=== PATIENT | male | born 1950 | race Caucasian/White ===

== ENCOUNTER 2018-01-12 08:59 | Emergency (ER) | payer MEDICARE, OTHER ==
[~2018-01-12] VITALS: Ht 167.6 cm; Wt 73.9 kg
[2018-01-12] MEDS ORDERED: DILANTIN100 MG PO (09:25)
[2018-01-12] MEDS ORDERED: MELOXICAM7.5 MG PO (09:25)
[2018-01-12] MEDS ORDERED: KEPPRA750 MG PO (09:25)
[2018-01-12] MEDS ORDERED: ONDANSETRON HCL 4 MG ORAL DISINTEGRATING TAB PO ONE (09:45)
[2018-01-12] MEDS ORDERED: ZOFRAN ODT4 MG SL (10:23)
[2018-01-12] MEDS ORDERED: SODIUM CHLORIDE 0.9% 1000ML 1,000 ML ONE (10:45)
--- NOTE | 2018-01-12 11:24 | Diagnostic Imaging Report ---
Examination: CT head without contrast Clinical Indication: Severe dizziness and right parietal pain. No trauma.. Technique: Transaxial noncontrast images from the skull base through the vertex were obtained. Sagittal and coronal reformatted images were done. Dose modulation, iterative reconstruction, and/or weight based adjustment of the mA/kV was utilized to reduce the radiation dose to as low as reasonably achievable. Comparison: None. Findings: Scalp: No abnormalities. Bones: Prior right temporoparietal craniotomy. No fractures. No blastic or lytic lesions. Brain sulci: Appropriate for patient's age. Ventricles: No hydrocephalus. Extra-axial space: No abnormalities. Parenchyma: Cortical-based encephalomalacia of the right frontal and temporoparietal lobes with ex vacuo dilatation of the body, atrium and temporal horn of the right lateral ventricle. No masses, hemorrhage, or acute cortical based vascular insults. Suprasellar region: No abnormalities. Craniocervical junction: The foramen magnum is patent. No Chiari one malformation. Incidental findings: None Impression: 1. No acute intracranial finding. 2. 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 3. Prior right temporoparietal craniotomy. Signed by: Dr. Tayla Cancino M.D. on 01/12/2018 11:20 AM
== END 2018-01-12 14:03 | disposition home or self-care (01) ==
LOC: FSED 08:59
DX: R53.1 Weakness (principal); R42 Dizziness and giddiness; G44.89 Other headache syndrome; B34.9 Viral infection, unspecified
CPT/HCPCS: 70450; 80053; 85025; 93005; 99284; J7030

== ENCOUNTER 2018-08-02 09:04 | Emergency (ER) | payer MEDICARE, OTHER ==
[~2018-08-02] VITALS: Ht 167.6 cm; Wt 73.9 kg
[~2018-08-02 09:04] MED LIST: DILANTIN100 MG PO; KEPPRA750 MG PO; MELOXICAM7.5 MG PO; ZOFRAN ODT4 MG SL
--- OUTSIDE RECORDS SUMMARY | 2018-08-02 09:07 | XMS REPORT | Continuity of Care Document ---
Author Author [facility] Interface Address Unknown Phone Unavailable Problems Problem Status Onset Date Classification Date Reported Comments Source Pain in left knee 12/19/2017 07/01/2018 [facility] [place] M25.562 - PAIN IN LEFT KNEE Active 12/12/2017 [facility] Medications Medication Details Route Status Patient Instructions Ordering Provider Order Date Source Ondansetron (Zofran Odt) 4 Mg Tab.rapdis Every 6 Hours as needed for Nausea Active Guallpa 01/12/2018 [facility] Levetiracetam (Keppra) 750 Mg Tablet Twice A Day Active [facility] Meloxicam 7.5 Mg Tablet Daily Active [facility] Phenytoin Sodium Extended (Dilantin) 100 Mg Capsule Twice A Day Active [facility] Allergies, Adverse Reactions, Alerts Substance Category Reaction Severity Reaction type Status Date Reported Comments Source Immunizations Immunization Date Given Site Status Last Updated Comments Source Results Order Name Results Value Reference Range Date Interpretation Comments Source Knee 3 views DX Knee 3 views DX EXAM: XR LEFT KNEE 3 VIEWS DATE: 12/12/2017 9:43 AM CDT INDICATION: M25.562 Pain in left knee COMPARISON: None. TECHNIQUE: Weightbearing lateral radiograph of the left knee, weightbearing AP radiograph of bilateral knees, and sunrise view of the left knee. FINDINGS: The joint spaces are preserved. Small osteophytes are seen around the patella. No knee joint effusion is present. No soft tissue abnormality is identified. No fractures or dislocations are seen. IMPRESSION: Minimal osteoarthrosis of the left knee. 12/12/2017 - - This report was dictated by a Gauger Delivery/Fellow. I have personally reviewed the images as well as the Resident's interpretation and agree with the findings. Read by: Teresita Santoro MD Resident: Teresita Santoro MD Dictated Date/time: 12/12/17 11:06 Electronically Signed by: Mando Ulrich MD 12/13/17 07:36 FINAL REPORT [facility] Vital Signs Vital Sign Value Date Comments Source Encounters Location Location Details Encounter Type Encounter Number Reason For Visit Attending Provider ADM Date DC Date Status Source [facility] Outpatient Imaging - [place] [facility] [id number] Mat Huston 12/12/2017 12/13/2017 [facility] Room [id number] SUAD GUALLPA MD 01/12/2018 01/12/2018 [facility] Procedures Procedure Code Date Perfomer Comments Source
--- OUTSIDE RECORDS SUMMARY | 2018-08-02 09:07 | XMS REPORT ---
Author Author [facility] Address Unknown Phone Unavailable Care Team Providers Care Manager Stylist Name Role Phone Va GUALLPA Unavailable Unavailable Problems This patient has no known problems. Allergies, Adverse Reactions, Alerts This patient has no known allergies or adverse reactions. Medications This patient has no known medications. Results Test Description Test Time Test Comments Text Results Atomic Results Result Comments CT BRAIN WO-HOPD 2018-01-12 11:19:00 [place] [address] Patient Name: ENEIDA ALCOCER MR #: [id number] : 1950 Age/Sex: 67/M Req #: [id number] [facility] Physician: Ordered by: SUAD GUALLPA MD Report #: [id number] Location: [facility] Room/Bed: Procedure: HOPD/CT BRAIN WO-HOPD Exam Date: 01/12/18 Exam Time: 1105 REPORT STATUS: Signed Examination: CT head without contrast Clinical Indication: Severe dizziness and right parietal pain. No trauma.. Technique: Transaxial noncontrast images from the skull base through the vertex were obtained. Sagittal and coronal reformatted images were done. Dose modulation, iterative reconstruction, and/or weight based adjustment of the mA/kV was utilized to reduce the radiation dose to as low as reasonably achievable. Comparison: None. Findings: Scalp: No abnormalities. Bones: Prior right temporoparietal craniotomy. No fractures. No blastic or lytic lesions. Brain sulci: Appropriate for patient's age. Ventricles: No hydrocephalus. Extra-axial space: No abnormalities. Parenchyma: Cortical-based encephalomalacia of the right frontal and temporoparietal lobes with ex vacuo dilatation of the body, atrium and temporal horn of the right lateral ventricle. No masses, hemorrhage, or acute cortical based vascular insults. Suprasellar region: No abnormalities. Craniocervical junction: The foramen magnum is patent. No Chiari one malformation. Incidental findings: None Impression: 1. No acute intracranial finding. 2. 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 3. Prior right temporoparietal craniotomy. Signed by: Dr. Tayla Cancino M.D. on 01/12/2018 11:20 AM Dictated By: TAYLA AGARWAL MD 1120 Transcribed By: CLARKE on 01/12/18 1120 COPY TO: SUAD GUALLPA MD
--- OUTSIDE RECORDS SUMMARY | 2018-08-02 09:07 | XMS REPORT | Summary of Care ---
Author Author [facility] Outpatient Imaging [facility]patient [facility] Address Unknown Phone Unavailable Encounter HQ Encntr_alias(FIN) [id number] Date(s): 12/12/17 - 12/12/17 [facility] Outpatient Imaging [facility] [address] [facility], [address] [place], [place] [address] [phone] Encounter Diagnosis Pain in left knee (Final) - 12/18/17 Discharge Disposition: Home or Self Care Attending Physician: Mat Huston MD Referring Physician: Mat Huston MD Vital Signs No data available for this section Problem List No data available for this section Allergies, Adverse Reactions, Alerts No data available for this section Medications No data available for this section Results No data available for this section Immunizations No data available for this section Procedures No data available for this section Social History No data available for this section Assessment and Plan No data available for this section
[2018-08-02] MEDS ORDERED: HYDROCODONE/APAP 5MG-325MG TAB PO ONE (09:45)
--- NOTE | 2018-08-02 11:35 | Diagnostic Imaging Report ---
Sternum CPT 61043 Indication: Trauma with pain and swelling Comparison: None Findings: The lateral view of the sternum demonstrates no evidence of fracture or dislocation. The LEMA view demonstrates no evidence of fracture. Visualized ribs appear intact. IMPRESSION: No evidence of fracture or dislocation. Signed by: Dr. David Rivero MD on 08/02/2018 11:32 AM
== END 2018-08-02 11:40 | disposition home or self-care (01) ==
LOC: ER 09:04
DX: S20.219A Contusion of unspecified front wall of thorax, initial encounter (principal); V43.52XA Car driver injured in collision with other type car in traffic accident, initial encounter; Y92.488 Other paved roadways as the place of occurrence of the external cause; I25.10 Atherosclerotic heart disease of native coronary artery without angina pectoris; G40.909 Epilepsy, unspecified, not intractable, without status epilepticus; Z85.46 Personal history of malignant neoplasm of prostate
CPT/HCPCS: 71120; 93005; 99283

== ENCOUNTER 2020-11-20 09:14 | Emergency (ER) | payer MEDICARE, OTHER ==
[~2020-11-20] VITALS: Ht 167.6 cm; Wt 60.4 kg
[2020-11-20] MEDS ORDERED: FLOMAX0.4 MG PO (09:27)
[2020-11-20] MEDS ORDERED: CEPHALEXIN500 MG PO (09:37)
== END 2020-11-20 09:43 | disposition home or self-care (01) ==
LOC: FSED 09:26
DX: H66.93 Otitis media, unspecified, bilateral (principal); I25.10 Atherosclerotic heart disease of native coronary artery without angina pectoris; G40.909 Epilepsy, unspecified, not intractable, without status epilepticus; Z85.46 Personal history of malignant neoplasm of prostate
CPT/HCPCS: 99282

== ENCOUNTER 2020-12-16 15:51 | Emergency (ER) | payer MEDICARE, OTHER ==
[~2020-12-16] VITALS: Ht 167.6 cm; Wt 60.9 kg
[~2020-12-16 15:51] MED LIST changes: +CEPHALEXIN500 MG PO; +FLOMAX0.4 MG PO
[2020-12-16] MEDS ORDERED: CLINDAMYCIN 600MG / 50ML 50 ML IV ONE ×2 (17:44→17:45)
[2020-12-16] MEDS ORDERED: Vancomycin IV 1 GM in SODIUM CHLORIDE 0.9% 250ML 250 ML IV ONE (18:00)
[2020-12-16] MEDS ORDERED: SODIUM CHLORIDE 0.9% 250ML 250 ML ONE (18:13)
[2020-12-16] MEDS ORDERED: Vancomycin IV 1 GM VIAL ONE (18:14)
[2020-12-16] MEDS ORDERED: CLEOCIN HCL300 MG PO (20:24)
[2020-12-16] MEDS ORDERED: CEPHALEXIN500 MG PO (20:29)
[2020-12-16 20:42] VITALS: BP 150/84
== END 2020-12-16 20:42 | disposition home or self-care (01) ==
LOC: FSED 16:40
DX: L03.114 Cellulitis of left upper limb (principal); M79.642 Pain in left hand; E78.5 Hyperlipidemia, unspecified; G40.909 Epilepsy, unspecified, not intractable, without status epilepticus; Z85.46 Personal history of malignant neoplasm of prostate
CPT/HCPCS: 80053; 85025; 99283; J3370; J7050

== ENCOUNTER 2022-09-29 17:33 | Emergency (ER) | payer MEDICARE, OTHER ==
[~2022-09-29] VITALS: Ht 167.6 cm; Wt 54.4 kg
[~2022-09-29 17:33] MED LIST changes: +CLEOCIN HCL300 MG PO
[2022-09-29] MEDS ORDERED: FAMOTIDINE 20 MG/2 ML VIAL IV STA (17:53)
[2022-09-29] MEDS ORDERED: ONDANSETRON HCL INJ 2MG/ML 2ML 2 MG/ML VIAL IV STA (17:53)
[2022-09-29] MEDS ORDERED: DONNATAL/LIDOCAINE/MAALOX 30 ML SUSP PO ONE (18:00)
[2022-09-29] MEDS ORDERED: MAGNESIUM/ALUMINUM/SIMETHICONE 30 ML UDC ONE (18:12)
[2022-09-29] MEDS ORDERED: LIDOCAINE VISC 2% SOLN 15 ML UDC ONE (18:12)
[2022-09-29] MEDS ORDERED: BELLADONNA ALK/PHENOBARBITAL 5 ML UDC ONE (18:12)
[2022-09-29] MEDS ORDERED: FAMOTIDINE 20 MG/2 ML VIAL IV ONE (18:12)
[2022-09-29] MEDS ORDERED: ONDANSETRON HCL INJ 2MG/ML 2ML 2 MG/ML VIAL ONE (18:12)
[2022-09-29] MEDS ORDERED: IOPAMIDOL 370 MG/ML 100 ML INFUS..BTL INJ ONE (18:22)
[2022-09-29] MEDS ORDERED: DICYCLOMINE HCL10 MG PO (20:06)
[2022-09-29 20:15] VITALS: BP 153/73; PULSE 78; RESP 18; TEMP 97.8; O2SAT 98
== END 2022-09-29 20:15 | disposition home or self-care (01) ==
LOC: FSED 17:46
DX: R10.33 Periumbilical pain (principal); K80.20 Calculus of gallbladder without cholecystitis without obstruction; R11.0 Nausea; I25.10 Atherosclerotic heart disease of native coronary artery without angina pectoris; E78.5 Hyperlipidemia, unspecified; G40.909 Epilepsy, unspecified, not intractable, without status epilepticus; Z85.46 Personal history of malignant neoplasm of prostate; Z87.820 Personal history of traumatic brain injury
CPT/HCPCS: 74177; 76705; 80048; 80076; 81003; 82553; 84484; 85025; 93005; 96374; 96375; 96376; 99284; J2405; Q9967

== ENCOUNTER 2022-10-04 16:34 | Inpatient (IN) | payer MEDICARE, OTHER ==
[~2022-10-04] VITALS: Ht 167.6 cm; Wt 54.4 kg
[~2022-10-04 16:34] MED LIST changes: +DICYCLOMINE HCL10 MG PO
[2022-10-04] MEDS ORDERED: SODIUM CHLORIDE 0.9% 1000ML 1,000 ML IV STA (16:51)
[2022-10-04] MEDS ORDERED: Morphine 2mg Syringe 2 MG/ML SYR IV STA (16:51)
[2022-10-04] MEDS ORDERED: ONDANSETRON HCL INJ 2MG/ML 2ML 2 MG/ML VIAL IV STA (16:51)
[2022-10-04 17:12] LABS: BASOPHILS % 0.5 % (0.0-1.0); LYMPHOCYTES # (AUTO) 1.3 (1.0-3.2); LYMPHOCYTES % 63.2 % (18.0-39.1); MEAN CORPUSCULAR HEMOGLOBIN 26.5 pg (28-32); MEAN CORPUSCULAR HGB CONC 32.4 g/dL (31-35); MEAN CORPUSCULAR VOLUME 81.9 fL (81-99); MONOCYTES # (AUTO) 0.5 (0.2-0.8); MONOCYTES % 22.1 % (4.4-11.3); NEUTROPHILS # (AUTO) 0.3 (2.1-6.9); NEUTROPHILS % 13.7 % (38.7-80.0); PLATELET COUNT 238 x10e3/uL (140-360); RED BLOOD COUNT 4.52 x10e6/uL (4.3-5.7); RED CELL DISTRIBUTION WIDTH 19.4 % (11.7-14.4)
[2022-10-04 17:34] LABS: ALANINE AMINOTRANSFERASE 24 IU/L (0-55); ALBUMIN/GLOBULIN RATIO 0.6 (0.8-2.0); ALKALINE PHOSPHATASE 241 IU/L (40-150); ANION GAP 18.2 mmol/L (8-16); BLOOD UREA NITROGEN 13 mg/dL (7-26); BUN/CREATININE RATIO 17 (6-25); CALCIUM 9.2 mg/dL (8.4-10.2); CARBON DIOXIDE 22 mmol/L (22-29); CHLORIDE 94 mmol/L (98-107); CREATINE KINASE 20 IU/L (30-200); CREATININE, SERUM 0.75 mg/dL (0.72-1.25); GLUCOSE 153 mg/dL (74-118); LIPASE 20 U/L (8-78); POTASSIUM 3.2 mmol/L (3.5-5.1); SODIUM 131 mmol/L (136-145)
[2022-10-04] MEDS ORDERED: SODIUM CHLORIDE 0.9% 1000ML 1,000 ML IV SCH (18:15)
[2022-10-04] MEDS ORDERED: ONDANSETRON HCL INJ 2MG/ML 2ML 2 MG/ML VIAL IV PRN (18:15)
[2022-10-04 19:45] LABS: LYMPHOCYTES % (MANUAL) 65 % (19-48); MONOCYTES % (MANUAL) 15 % (3.4-9.0); NEUTROPHILS % (MANUAL) 9 % (40-74); PLATELET ESTIMATE ADEQUATE; PLATELET MORPHOLOGY COMMENT NORMAL; RBC MORPHOLOGY COMMENT NORMAL
[2022-10-04 21:30] VITALS: BP 111/62; PULSE 72; RESP 17; TEMP 97.7; O2SAT 99
[2022-10-04] MEDS: SODIUM CHLORIDE 0.9% 1000ML 1,000 ML IV SCH (21:38)
[2022-10-04 21:44] VITALS: PULSE 75; RESP 16; O2SAT 99
[2022-10-04 21:53] VITALS: BP 113/66; PULSE 72; RESP 17; TEMP 97.7; O2SAT 100
[2022-10-04] MEDS: POTASSIUM CHLORIDE 10MEQ/100ML 100 ML IV SCH ×2 (22:16→22:17)
[2022-10-04] MEDS ORDERED: HYDRALAZINE HCL 20 MG/ML VIAL IV PRN (22:45)
[2022-10-05] VITALS (8 sets, daily range): BP systolic 116–150; BP diastolic 60–72; PULSE 67–91; RESP 16–18; TEMP 97.6–98.8; O2SAT 97–100
[2022-10-05] MEDS: Morphine 4mg INJECTION 4 MG/ML INJ IV PRN ×2 (00:20→17:06)
[2022-10-05 00:53] LABS: CREATINE KINASE 12 IU/L (30-200)
[2022-10-05] MEDS: SODIUM CHLORIDE 0.9% 1000ML 1,000 ML IV SCH ×3 (05:06→20:26)
[2022-10-05 06:16] LABS: ALBUMIN 2.2 g/dL (3.5-5.0); ALBUMIN/GLOBULIN RATIO 0.6 (0.8-2.0); ANION GAP 13.4 mmol/L (8-16); BILIRUBIN,DIRECT 0.5 mg/dL (0.0-0.5); CREATININE, SERUM 0.58 mg/dL (0.72-1.25); MAGNESIUM 1.8 MG/DL (1.3-2.1); POTASSIUM 4.4 mmol/L (3.5-5.1)
[2022-10-05 06:34] LABS: HIV 1&2 AB SCREEN NON-REACTIVE (NONREACTIVE)
[2022-10-05 06:40] LABS: FERRITIN 714.82 ng/mL (21.81-274.66)
[2022-10-05 06:52] LABS: HEMATOCRIT 25.2 % (38.2-49.6); LYMPHOCYTES # (AUTO) 0.5 (1.0-3.2); LYMPHOCYTES % 56.8 % (18.0-39.1); MEAN CORPUSCULAR HGB CONC 32.1 g/dL (31-35); MONOCYTES # (AUTO) 0.3 (0.2-0.8); MONOCYTES % 31.6 % (4.4-11.3); NEUTROPHILS # (AUTO) 0.1 (2.1-6.9); NEUTROPHILS % 11.6 % (38.7-80.0); PLATELET COUNT 155 x10e3/uL (140-360); RED BLOOD COUNT 3.11 x10e6/uL (4.3-5.7); RED CELL DISTRIBUTION WIDTH 18.9 % (11.7-14.4)
[2022-10-05 06:59] LABS: HEMOGLOBIN 8.1 g/dL (14.0-18.0)
[2022-10-05 07:51] LABS: LYMPHOCYTES % (MANUAL) 80 % (19-48); MONOCYTES % (MANUAL) 12 % (3.4-9.0); NEUTROPHILS % (MANUAL) 8 % (40-74)
[2022-10-05 07:52] LABS: ANISOCYTOSIS SLIGHT; PLATELET ESTIMATE ADEQUATE; PLATELET MORPHOLOGY COMMENT NORMAL; TOXIC GRANULATION MODERATE
[2022-10-05 07:53] LABS: RBC MORPHOLOGY COMMENT NORMAL
[2022-10-05 07:54] LABS: HYPOCHROMASIA SLIGHT
[2022-10-05 07:55] LABS: CREATINE KINASE 12 IU/L (30-200)
[2022-10-05] MEDS: DOCUSATE SODIUM 100 MG CAP PO SCH (08:19)
[2022-10-05] MEDS: SENNOSIDES 8.6 MG TAB PO SCH (08:19)
[2022-10-05 10:11] LABS: BASOPHILS % 1.2 % (0.0-1.0); HEMATOCRIT 26.6 % (38.2-49.6); HEMOGLOBIN 8.5 g/dL (14.0-18.0); LYMPHOCYTES # (AUTO) 0.5 (1.0-3.2); LYMPHOCYTES % 59.3 % (18.0-39.1); MEAN CORPUSCULAR HEMOGLOBIN 26.2 pg (28-32); MEAN CORPUSCULAR VOLUME 82.1 fL (81-99); MONOCYTES # (AUTO) 0.2 (0.2-0.8); MONOCYTES % 22.1 % (4.4-11.3); NEUTROPHILS # (AUTO) 0.2 (2.1-6.9); NEUTROPHILS % 17.4 % (38.7-80.0); PLATELET COUNT 126 x10e3/uL (140-360); RED BLOOD COUNT 3.24 x10e6/uL (4.3-5.7); RED CELL DISTRIBUTION WIDTH 18.7 % (11.7-14.4)
[2022-10-05] MEDS ORDERED: ACETAMINOPHEN 325 MG TAB PO PRN (13:00)
[2022-10-05] MEDS ORDERED: Morphine 2mg Syringe 2 MG/ML SYR IV PRN (13:00)
[2022-10-05 15:41] LABS: LYMPHOCYTES % (MANUAL) 56 % (19-48); MONOCYTES % (MANUAL) 20 % (3.4-9.0); NEUTROPHILS % (MANUAL) 20 % (40-74); PLATELET MORPHOLOGY COMMENT NORMAL
[2022-10-05 15:42] LABS: PLATELET ESTIMATE SLIGHTLY DECREASED; TOXIC GRANULATION SLIGHT
[2022-10-05 15:43] LABS: ANISOCYTOSIS SLIGHT; RBC MORPHOLOGY COMMENT NORMAL
[2022-10-06 00:44] VITALS: BP 111/61; PULSE 65; RESP 17; TEMP 98.8; O2SAT 99
[2022-10-06] MEDS: SODIUM CHLORIDE 0.9% 1000ML 1,000 ML IV SCH (04:16)
[2022-10-06 04:39] VITALS: BP 115/72; PULSE 74; RESP 17; TEMP 98.7; O2SAT 99
[2022-10-06 06:08] LABS: HEMATOCRIT 25.6 % (38.2-49.6); HEMOGLOBIN 8.3 g/dL (14.0-18.0); LYMPHOCYTES # (AUTO) 0.7 (1.0-3.2); LYMPHOCYTES % 67.3 % (18.0-39.1); MEAN CORPUSCULAR HEMOGLOBIN 26.6 pg (28-32); MEAN CORPUSCULAR HGB CONC 32.4 g/dL (31-35); MEAN CORPUSCULAR VOLUME 82.1 fL (81-99); MONOCYTES # (AUTO) 0.2 (0.2-0.8); MONOCYTES % 19.8 % (4.4-11.3); NEUTROPHILS # (AUTO) 0.1 (2.1-6.9); NEUTROPHILS % 10.9 % (38.7-80.0); PLATELET COUNT 158 x10e3/uL (140-360); RED BLOOD COUNT 3.12 x10e6/uL (4.3-5.7); RED CELL DISTRIBUTION WIDTH 18.4 % (11.7-14.4)
[2022-10-06 06:33] LABS: ALBUMIN 1.9 g/dL (3.5-5.0); ALBUMIN/GLOBULIN RATIO 0.6 (0.8-2.0); ANION GAP 10.8 mmol/L (8-16); CALCIUM 7.8 mg/dL (8.4-10.2); CREATININE, SERUM 0.56 mg/dL (0.72-1.25); MAGNESIUM 1.8 MG/DL (1.3-2.1); POTASSIUM 3.8 mmol/L (3.5-5.1)
[2022-10-06 08:12] VITALS: BP 121/77; PULSE 69; RESP 18; TEMP 97.7; O2SAT 100
[2022-10-06 08:13] LABS: ANISOCYTOSIS SLIGHT; LYMPHOCYTES % (MANUAL) 65 % (19-48); MONOCYTES % (MANUAL) 11 % (3.4-9.0); NEUTROPHILS % (MANUAL) 18 % (40-74); PLATELET ESTIMATE ADEQUATE; PLATELET MORPHOLOGY COMMENT NORMAL
[2022-10-06 08:14] LABS: RBC MORPHOLOGY COMMENT NORMAL
[2022-10-06 09:10] VITALS: BP 121/77; PULSE 69; RESP 18; TEMP 97.7; O2SAT 100
[2022-10-06] MEDS: SENNOSIDES 8.6 MG TAB PO SCH (09:13)
[2022-10-06] MEDS: DOCUSATE SODIUM 100 MG CAP PO SCH (09:13)
[2022-10-06] MEDS ORDERED: ULTRAM 50MG50 MG PO (09:49)
[2022-10-06] MEDS ORDERED: METRONIDAZOLE500 MG PO (09:49)
[2022-10-06] MEDS ORDERED: CIPRO500 MG PO (09:49)
[2022-10-06] MEDS: Morphine 4mg INJECTION 4 MG/ML INJ IV PRN (10:21)
[2022-10-06 11:54] VITALS: BP 124/68; PULSE 82; RESP 20; TEMP 97.7; O2SAT 100
== END 2022-10-06 13:41 | disposition home or self-care (01) | DRG 809 ==
LOC: ER 16:48 → ERHOLD 18:07 → MED/SURG2 21:23
PROVIDERS: ADMIT Internal Medicine; ATTEND Internal Medicine
DX: D70.9 Neutropenia, unspecified (principal); E87.1 Hypo-osmolality and hyponatremia; K80.20 Calculus of gallbladder without cholecystitis without obstruction; E87.6 Hypokalemia; D64.9 Anemia, unspecified; Z85.46 Personal history of malignant neoplasm of prostate; G40.909 Epilepsy, unspecified, not intractable, without status epilepticus; Z87.820 Personal history of traumatic brain injury; D63.8 Anemia in other chronic diseases classified elsewhere; T42.0X5A Adverse effect of hydantoin derivatives, initial encounter; Y92.019 Unspecified place in single-family (private) house as the place of occurrence of the external cause
CPT/HCPCS: 0223U; 36415; 71045; 71046; 80053; 80076; 80185; 82550; 82553; 82607; 82728; 83540; 83690; 83735; 84466; 84484; 85025; 87390; 93005; 94799; 99284; G0433; G0435; J2270; J2405; J2543; J3480; J7030

== ENCOUNTER → 2023-02-28 | Day surgery (SDC) | payer MEDICARE, OTHER ==
[2023-02-25 13:30] LABS: BASOPHILS % 0.5 % (0.0-1.0); HEMATOCRIT 32.1 % (38.2-49.6); HEMOGLOBIN 10.8 g/dL (14.0-18.0); LYMPHOCYTES # (AUTO) 1.3 (1.0-3.2); LYMPHOCYTES % 59.8 % (18.0-39.1); MEAN CORPUSCULAR HEMOGLOBIN 26.2 pg (28-32); MEAN CORPUSCULAR HGB CONC 33.6 g/dL (31-35); MEAN CORPUSCULAR VOLUME 77.7 fL (81-99); MONOCYTES # (AUTO) 0.3 (0.2-0.8); MONOCYTES % 15.8 % (4.4-11.3); NEUTROPHILS # (AUTO) 0.5 (2.1-6.9); NEUTROPHILS % 23.9 % (38.7-80.0); PLATELET COUNT 155 x10e3/uL (140-360); RED BLOOD COUNT 4.13 x10e6/uL (4.3-5.7); RED CELL DISTRIBUTION WIDTH 16.9 % (11.7-14.4); WHITE BLOOD COUNT 2.09 x10e3/uL (4.8-10.8)
[2023-02-25 13:48] LABS: ALBUMIN 3.5 g/dL (3.5-5.0); ALBUMIN/GLOBULIN RATIO 0.9 (0.8-2.0); ANION GAP 14.7 mmol/L (8-16); CALCIUM 8.8 mg/dL (8.4-10.2); CREATININE, SERUM 0.77 mg/dL (0.72-1.25); POTASSIUM 3.7 mmol/L (3.5-5.1)
[2023-02-25 14:25] LABS: LYMPHOCYTES % (MANUAL) 57 % (19-48); MONOCYTES % (MANUAL) 14 % (3.4-9.0); NEUTROPHILS % (MANUAL) 27 % (40-74); PLATELET ESTIMATE ADEQUATE; PLATELET MORPHOLOGY COMMENT NORMAL; RBC MORPHOLOGY COMMENT NORMAL
[~2023-02-28] MED LIST changes: +BUPIVACAINE 0.25% 30ML SDV ONE; +CIPRO500 MG PO; +CLEOCIN HCL150 MG PO; +DICYCLOMINE HCL20 MG PO; +FENTANYL CITRATE/PF 100MCG/2 ML INJ ONE; +LACTATED RINGER'S 1,000 ML ONE; +METRONIDAZOLE500 MG PO; +ONDANSETRON ODT4 MG SL; +ULTRAM 50MG50 MG PO
[2023-02-28 12:15] VITALS: BP 113/62; PULSE 63; RESP 17; O2SAT 100
== END | disposition home or self-care (01) ==
LOC: OR 06:37
PROVIDERS: ATTEND Surgery
DX: K80.10 Calculus of gallbladder with chronic cholecystitis without obstruction (principal); K82.8 Other specified diseases of gallbladder; G40.909 Epilepsy, unspecified, not intractable, without status epilepticus; N40.0 Benign prostatic hyperplasia without lower urinary tract symptoms; M19.91 Primary osteoarthritis, unspecified site; Z79.899 Other long term (current) drug therapy
CPT/HCPCS: 36415; 47562; 71046; 80053; 85025; 88304; 93005; C1766; J3010; J7121

== ENCOUNTER 2024-05-04 13:34 | Inpatient (IN) | payer MEDICARE, OTHER ==
[~2024-05-04] VITALS: Ht 167.6 cm; Wt 54.4 kg
[~2024-05-04 13:34] MED LIST changes: -BUPIVACAINE 0.25% 30ML SDV ONE; -FENTANYL CITRATE/PF 100MCG/2 ML INJ ONE; -LACTATED RINGER'S 1,000 ML ONE
[2024-05-04 15:02] LABS: HEMATOCRIT 33.8 % (38.2-49.6); HEMOGLOBIN 11.2 g/dL (14.0-18.0); LYMPHOCYTES # (AUTO) 1.2 (1.0-3.2); MEAN CORPUSCULAR HEMOGLOBIN 27.2 pg (28-32); MEAN CORPUSCULAR HGB CONC 33.1 g/dL (31-35); MONOCYTES # (AUTO) 0.6 (0.2-0.8); MONOCYTES % 30.7 % (4.4-11.3); NEUTROPHILS # (AUTO) 0.1 (2.1-6.9); NEUTROPHILS % 4.8 % (38.7-80.0); PLATELET COUNT 136 x10e3/uL (140-360); RED BLOOD COUNT 4.12 x10e6/uL (4.3-5.7); RED CELL DISTRIBUTION WIDTH 14.4 % (11.7-14.4)
[2024-05-04 15:11] LABS: WHITE BLOOD COUNT 1.92 x10e3/uL (4.8-10.8)
[2024-05-04] MEDS: TETANUS/DIPHTHERIA TOX ADULT 0.5 ML SYR IM ONE (15:15)
[2024-05-04 15:24] LABS: ALBUMIN 3.2 g/dL (3.5-5.0); ALBUMIN/GLOBULIN RATIO 0.9 (0.8-2.0); ANION GAP 12.4 mmol/L (8-16); BILIRUBIN,TOTAL 0.3 mg/dL (0.2-1.2); CALCIUM 8.4 mg/dL (8.4-10.2); CREATININE, SERUM 0.68 mg/dL (0.72-1.25); TOTAL PROTEIN 6.9 g/dL (6.5-8.1)
[2024-05-04 15:26] LABS: POTASSIUM 3.4 mmol/L (3.5-5.1)
[2024-05-04] MEDS: Vancomycin IV 1 GM in SODIUM CHLORIDE 0.9% 250ML 250 ML IV SCH (16:27)
[2024-05-04 17:41] LABS: LYMPHOCYTES % (MANUAL) 52 % (19-48); MONOCYTES % (MANUAL) 18 % (3.4-9.0); NEUTROPHILS % (MANUAL) 28 % (40-74); PLATELET ESTIMATE SLIGHTLY DECREASED; PLATELET MORPHOLOGY COMMENT NORMAL; RBC MORPHOLOGY COMMENT NORMAL; REACTIVE LYMPHOCYTES 2
[2024-05-04] MEDS ORDERED: Morphine 4mg INJECTION 4 MG/ML INJ IV PRN (17:45)
[2024-05-04] MEDS ORDERED: ONDANSETRON HCL INJ 2MG/ML 2ML 2 MG/ML VIAL IV PRN (17:45)
[2024-05-04] MEDS: LEVETIRACETAM 1500 MG/100 ML 100 ML IV SCH (18:17)
[2024-05-04] MEDS: SODIUM CHLORIDE 0.9% 1000ML 1,000 ML IV SCH (18:17)
[2024-05-04] MEDS ORDERED: LEVETIRACETAM 500MG/5ML VIAL 1,500 MG in SODIUM CHLORIDE 0.9% 100 ML IV SCH (18:30)
[2024-05-04 18:46] VITALS: PULSE 73; RESP 16; TEMP 98.2
[2024-05-04 20:10] VITALS: BP 130/66; PULSE 71; RESP 20; TEMP 98.2; O2SAT 100
[2024-05-04 21:00] VITALS: BP 130/66; PULSE 71; RESP 20; TEMP 98.2; O2SAT 100
[2024-05-05] VITALS (8 sets, daily range): BP systolic 110–128; BP diastolic 59–70; PULSE 65–85; RESP 17–20; TEMP 97.5–98.7; O2SAT 100
[2024-05-05 05:28] LABS: BASOPHILS % 1.2 % (0.0-1.0); HEMATOCRIT 31.6 % (38.2-49.6); HEMOGLOBIN 10.5 g/dL (14.0-18.0); LYMPHOCYTES # (AUTO) 0.9 (1.0-3.2); LYMPHOCYTES % 55.8 % (18.0-39.1); MEAN CORPUSCULAR HEMOGLOBIN 27.2 pg (28-32); MEAN CORPUSCULAR HGB CONC 33.2 g/dL (31-35); MEAN CORPUSCULAR VOLUME 81.9 fL (81-99); MONOCYTES # (AUTO) 0.5 (0.2-0.8); MONOCYTES % 32.7 % (4.4-11.3); NEUTROPHILS # (AUTO) 0.2 (2.1-6.9); NEUTROPHILS % 10.3 % (38.7-80.0); PLATELET COUNT 132 x10e3/uL (140-360); RED BLOOD COUNT 3.86 x10e6/uL (4.3-5.7); RED CELL DISTRIBUTION WIDTH 14.4 % (11.7-14.4)
[2024-05-05 05:40] LABS: WHITE BLOOD COUNT 1.65 x10e3/uL (4.8-10.8)
[2024-05-05 06:30] LABS: ALBUMIN 2.9 g/dL (3.5-5.0); ALBUMIN/GLOBULIN RATIO 0.9 (0.8-2.0); ANION GAP 12.7 mmol/L (8-16); BILIRUBIN,TOTAL 0.3 mg/dL (0.2-1.2); CREATININE, SERUM 0.7 mg/dL (0.72-1.25); POTASSIUM 3.7 mmol/L (3.5-5.1); TOTAL PROTEIN 6.3 g/dL (6.5-8.1)
[2024-05-05 10:32] LABS: LYMPHOCYTES % (MANUAL) 52 % (19-48); MONOCYTES % (MANUAL) 32 % (3.4-9.0); NEUTROPHILS % (MANUAL) 14 % (40-74); PLATELET ESTIMATE SLIGHTLY DECREASED; PLATELET MORPHOLOGY COMMENT NORMAL; RBC MORPHOLOGY COMMENT NORMAL; REACTIVE LYMPHOCYTES 2
[2024-05-05] MEDS: FILGRASTIM-AAFI 300 MCG/0.5 ML SYRINGE SQ ONE (12:10)
[2024-05-05] MEDS ORDERED: PROPOFOL IV EMULSION 10 MG/ML 20 ML VIAL ONE (12:10)
[2024-05-05] MEDS ORDERED: FENTANYL CITRATE/PF 100MCG/2 ML INJ ONE (12:10)
[2024-05-05] MEDS ORDERED: LIDOCAINE HCL 2% LOCAL INJ 5 ML SDV VIAL INJ ONE (12:10)
[2024-05-05] MEDS ORDERED: SEVOFLURANE INHAL SOLN 250 ML PEN BTL ONE (12:12)
[2024-05-05] MEDS ORDERED: MIDAZOLAM HCL 2 MG/2 ML VIAL ONE (12:37)
[2024-05-05] MEDS ORDERED: FAMOTIDINE 20 MG/2 ML VIAL IV ONE (12:42)
[2024-05-05] MEDS ORDERED: ONDANSETRON HCL INJ 2MG/ML 2ML 2 MG/ML VIAL ONE (12:42)
[2024-05-06 00:18] VITALS: BP 117/63; PULSE 69; RESP 18; TEMP 97.5; O2SAT 100
[2024-05-06 07:30] VITALS: BP 113/65; PULSE 69; RESP 18; TEMP 97.5; O2SAT 96
[2024-05-06] MEDS: TAMSULOSIN HCL 0.4 MG CAP PO SCH (08:51)
[2024-05-06 09:00] VITALS: BP 113/65; PULSE 69; RESP 18; TEMP 97.6; O2SAT 96
[2024-05-06] MEDS: MUPIROCIN 2% OINT 22 GM TUBE TOP SCH (10:48)
[2024-05-06 12:02] LABS: BASOPHILS % 0.6 % (0.0-1.0); HEMATOCRIT 33.6 % (38.2-49.6); HEMOGLOBIN 10.3 g/dL (14.0-18.0); LYMPHOCYTES # (AUTO) 1.1 (1.0-3.2); MEAN CORPUSCULAR HEMOGLOBIN 27.5 pg (28-32); MEAN CORPUSCULAR HGB CONC 30.7 g/dL (31-35); MEAN CORPUSCULAR VOLUME 89.8 fL (81-99); MONOCYTES # (AUTO) 0.7 (0.2-0.8); MONOCYTES % 19.9 % (4.4-11.3); NEUTROPHILS # (AUTO) 1.5 (2.1-6.9); NEUTROPHILS % 45.9 % (38.7-80.0); PLATELET COUNT 116 x10e3/uL (140-360); RED BLOOD COUNT 3.74 x10e6/uL (4.3-5.7); RED CELL DISTRIBUTION WIDTH 14.6 % (11.7-14.4); WHITE BLOOD COUNT 3.27 x10e3/uL (4.8-10.8)
[2024-05-06 16:30] VITALS: BP 120/73; PULSE 77; RESP 18; TEMP 97.9; O2SAT 99
[2024-05-06] MEDS: LEVETIRACETAM 500 MG TAB PO SCH (17:18)
[2024-05-06 22:55] VITALS: BP 133/69; PULSE 74; RESP 18; TEMP 99.7; O2SAT 99
[2024-05-06 23:15] VITALS: BP 128/72; PULSE 85; RESP 20; TEMP 98.2; O2SAT 100
[2024-05-07 04:01] VITALS: BP 113/70; PULSE 77; RESP 16; TEMP 97.7; O2SAT 99
[2024-05-07 05:27] LABS: BASOPHILS % 0.9 % (0.0-1.0); HEMATOCRIT 31.1 % (38.2-49.6); HEMOGLOBIN 10.3 g/dL (14.0-18.0); MEAN CORPUSCULAR HEMOGLOBIN 27.2 pg (28-32); MEAN CORPUSCULAR HGB CONC 33.1 g/dL (31-35); MEAN CORPUSCULAR VOLUME 82.1 fL (81-99); MONOCYTES # (AUTO) 0.6 (0.2-0.8); MONOCYTES % 23.9 % (4.4-11.3); NEUTROPHILS # (AUTO) 0.7 (2.1-6.9); NEUTROPHILS % 31.2 % (38.7-80.0); PLATELET COUNT 124 x10e3/uL (140-360); RED BLOOD COUNT 3.79 x10e6/uL (4.3-5.7); RED CELL DISTRIBUTION WIDTH 14.5 % (11.7-14.4); RETICULOCYTE % 1.1 % (0.8-2.2); WHITE BLOOD COUNT 2.34 x10e3/uL (4.8-10.8)
[2024-05-07 06:12] LABS: ANION GAP 12.7 mmol/L (8-16); CALCIUM 8.6 mg/dL (8.4-10.2); CREATININE, SERUM 0.72 mg/dL (0.72-1.25); PHOSPHORUS 3.7 MG/DL (2.3-4.7); POTASSIUM 3.7 mmol/L (3.5-5.1)
[2024-05-07 06:38] LABS: FERRITIN 126.49 ng/mL (21.81-274.66); FREE T4 (FREE THYROXINE) 0.87 ng/dL (0.8-1.8); THYROID STIMULATING HORMONE 1.166 uIU/mL (0.350-4.940)
[2024-05-07 06:41] LABS: FOLATE 9.1 ng/mL (7.0-15.4)
[2024-05-07 08:00] VITALS: BP 109/59; PULSE 73; RESP 18; TEMP 98.2; O2SAT 100
[2024-05-07 09:42] VITALS: BP 109/59; PULSE 73; RESP 18; TEMP 98.2; O2SAT 100
[2024-05-07] MEDS: CYANOCOBALAMIN INJ 1,000 MCG/ML VIAL IM ONE (12:25)
[2024-05-07] MEDS: FOLIC ACID 1 MG TAB PO ONE (12:25)
[2024-05-07] MEDS: IRON SUCROSE 100 MG in SODIUM CHLORIDE 0.9% 100 ML IV SCH (12:29)
[2024-05-07 12:31] VITALS: BP 136/69; PULSE 66; RESP 18; TEMP 98; O2SAT 96
[2024-05-07 16:01] VITALS: BP 138/70; PULSE 70; RESP 17; TEMP 98.7; O2SAT 100
[2024-05-07 20:00] VITALS: BP_SYST 125; BP_DIAS 70; BP_DIAS 71; PULSE 73; RESP 18; TEMP 97.6; O2SAT 100
[2024-05-08] VITALS: BP 140/68; PULSE 74; RESP 19; TEMP 98; O2SAT 100
[2024-05-08 04:00] VITALS: BP 109/68; PULSE 70; RESP 19; TEMP 98; O2SAT 98
[2024-05-08 08:00] VITALS: BP 123/79; PULSE 81; RESP 18; TEMP 97.7; O2SAT 100
[2024-05-08 12:00] VITALS: BP 124/67; PULSE 77; RESP 18; TEMP 97.8; O2SAT 98
[2024-05-08 12:01] LABS: HEMATOCRIT 34.3 % (38.2-49.6); HEMOGLOBIN 10.8 g/dL (14.0-18.0); MEAN CORPUSCULAR HEMOGLOBIN 27.3 pg (28-32); MEAN CORPUSCULAR HGB CONC 31.5 g/dL (31-35); MEAN CORPUSCULAR VOLUME 86.6 fL (81-99); PLATELET COUNT 125 x10e3/uL (140-360); RED BLOOD COUNT 3.96 x10e6/uL (4.3-5.7); RED CELL DISTRIBUTION WIDTH 14.5 % (11.7-14.4); WHITE BLOOD COUNT 2.07 x10e3/uL (4.8-10.8)
[2024-05-08 12:44] LABS: LYMPHOCYTES % (MANUAL) 64 % (19-48); MONOCYTES % (MANUAL) 23 % (3.4-9.0); NEUTROPHILS % (MANUAL) 13 % (40-74)
[2024-05-08 12:45] LABS: PLATELET ESTIMATE SLIGHTLY DECREASED; PLATELET MORPHOLOGY COMMENT NORMAL; RBC MORPHOLOGY COMMENT NORMAL
[2024-05-08] MEDS ORDERED: MUPIROCIN22 GM TOP (15:30)
== END 2024-05-08 16:56 | disposition home or self-care (01) | DRG 981 ==
LOC: ER 14:50 → ERHOLD 17:38 → MED/SURG2 19:41
PROVIDERS: ADMIT Internal Medicine; ATTEND Internal Medicine
PROC: 0KBC0ZZ Excision of Right Hand Muscle, Open Approach (ICD-10-PCS; principal; 2024-05-05 12:37)
DX: L02.511 Cutaneous abscess of right hand (principal); D61.811 Other drug-induced pancytopenia; L03.113 Cellulitis of right upper limb; G40.89 Other seizures; S61.451A Open bite of right hand, initial encounter; T42.0X5A Adverse effect of hydantoin derivatives, initial encounter; E78.5 Hyperlipidemia, unspecified; N40.0 Benign prostatic hyperplasia without lower urinary tract symptoms; W54.0XXA Bitten by dog, initial encounter; Z85.46 Personal history of malignant neoplasm of prostate; Z85.828 Personal history of other malignant neoplasm of skin; Z91.018 Allergy to other foods
CPT/HCPCS: 36415; 80048; 80053; 80061; 80202; 82607; 82728; 82746; 83036; 83540; 83735; 84100; 84439; 84443; 84466; 85007; 85025; 85027; 85045; 87040; 87071; 87075; 87205; 90714; 95819; 99252; 99284; J1756; J2003; J2250; J2405; J2543; J3420; J7030; J7050